=== PATIENT | female | born 1945 | race Caucasian/White ===

== ENCOUNTER → 2018-04-20 | Outpatient (CLI) | payer MEDICARE | END | disposition home or self-care (01) | LOC: NPLAB 12:27 | PROVIDERS: ATTEND Nurse Practitioner Family | DX: N39.0 Urinary tract infection, site not specified (principal) | CPT/HCPCS: 87077; 87086; 87186 ==

== ENCOUNTER → 2021-02-19 | Outpatient (CLI) | payer MEDICARE, OTHER ==
[~2021-02-19] MED LIST: LEXISCAN IV ONE
--- NOTE | 2021-02-19 11:51 | PCM.ECHO ---
APPROVED REPORT EXAM: Comprehensive 2D, Doppler, and color-flow Echocardiogram. Patient Location: OUT-PATIENT Indications Chest Pain 2D Dimensions LVOT Diameter 2.27 (1.8-2.4cm) LVEF(%) 64.14 (>50%) M-Mode Dimensions RVDd 0.50 (2.1-3.2cm) Left Atrium(MM) 4.65 (2.5-4.0cm) IVSd 0.50 (0.7-1.1cm) Aortic Root 3.00 (2.2-3.7cm) LVDd 6.30 (4.0-5.6cm) Aortic Cusp Exc 1.70 (1.5-2.0cm) PWd 0.55 (0.7-1.1cm) MV EPSS 0.84 (<0.5cm) IVSs 1.05 cm FS (%) 34.10 % LVDs 4.15 (2.0-3.8cm) ESV(Teich) 77.43 ml PWs 1.35 cm LVEF(%) 61.98 (>50%) Volumes Biplane 2D LV Volumes Biplane 2D LA Volumes LVEDv A4C 125.19 mL LA ESV Index LVESv A4C 44.90 mL Aortic Valve AoV Peak Jareth. 1.35 m/s AoV VTI 30.05 cm AO Peak GR. 7.60 mmHg AO Mean GR. 4.35 mmHg LVOT VTI 22.41 cm LVOT Peak Jareth. 0.87 m/s FRENCH(VTI)/BSA 3.01 cm2/m2 FRENCH (VTI) 3.01 cm2 Mitral Valve MV E Velocity 0.70m/s MR Peak Gr. 40.30mmHg MV A Velocity 1.05m/s TDI Lateral E' P. V 0.09m/s Medial E' P. V 0.05m/s Pulmonary Valve PV Peak Velocity 0.50m/s PV Peak Grad. 1.15mmHg RVOT VTI 12.97cm Tricuspid Valve TR P. Velocity 2.90m/s RAP ESTIMATE 10.00mmHg TR Peak Gr. 34.55mmHg RVSP 44.55mmHg LEFT VENTRICLE The left ventricle is normal size. The left ventricular systolic function is normal. The left ventricular ejection fraction is within the normal range. There is normal left ventricular wall thickness. There is normal LV segmental wall motion. There is no ventricular septal defect visualized. No left ventricle thrombus noted on this study. LVEF is 55-60%. RIGHT VENTRICLE The right ventricle is normal size. The right ventricular systolic function is normal. There is normal right ventricular wall thickness. ATRIA Left atrium is severely dilated. Right atrium is moderately dilated. The interatrial septum is intact with no evidence for an atrial septal defect. AORTIC VALVE The aortic valve is normal in structure. There is no aortic valvular stenosis. No aortic regurgitation is present. There is no aortic valvular vegetation. MITRAL VALVE The mitral valve is normal in structure. There is no mitral valve stenosis. Moderate to severe mitral regurgitation There is no evidence of mitral valve vegetations. TRICUSPID VALVE The tricuspid valve is normal in structure. There is no tricuspid valve stenosis. Moderate to severe tricuspid regurgitation Moderate pulmonary hypertension. There is no tricuspid valve vegetations. PULMONIC VALVE Pulmonic valve is not well visualized. There is no pulmonic valvular stenosis. There is no pulmonic valvular regurgitation. GREAT VESSELS The aortic root is normal in size. Pulmonary artery is not well visualized. Aortic arch is not well visualized. The IVC is normal in size and collapses >50% with inspiration. PERICARDIUM There is no pericardial effusion. There is no pleural effusion. Other Information Study Quality: Fair <Conclusion> The left ventricular systolic function is normal. LVEF is 55-60%. Left atrium is severely dilated. Right atrium is moderately dilated. Moderate to severe mitral regurgitation Moderate to severe tricuspid regurgitation Moderate pulmonary hypertension. Electronically signed by : BENEDICTO MA. 02/19/2021 11:51:29
--- NOTE | 2021-02-19 21:31 | STRESS ---
DATE OF SERVICE: 02/19/2021 DICTATOR NAME: BENEDICTO IVANAOtilio CARDIAC STRESS TEST INDICATION: Chest pain. FINDINGS: Baseline EKG shows normal sinus rhythm with left ventricular hypertrophy. Stress EKG shows normal sinus rhythm, unchanged from baseline. At the end of recovery, EKG shows normal sinus rhythm, unchanged from baseline. Baseline heart rate is 74 beats per minute and oanh to 95 beats per minute during stress. At the end of recovery, the heart rate was 99 beats per minute. Baseline blood pressure is 173/88 and remained the same during stress. At the end of recovery, the blood pressure was 167/85. Blood pressure and heart rate were appropriate for stress. There were no significant symptoms noted during stress. There were no arrhythmias noted during stress. EKG portion of stress test is negative for myocardial ischemia. Nuclear images were obtained with a rest dose of 10 mCi technetium 99 sestamibi, and a stress dose of 32.6 mCi technetium 99 sestamibi. Nuclear images reveal homogeneous tracer distribution across all wall segments in both rest and stress images, with no evidence of myocardial ischemia or infarction. Left ventricular ejection fraction is 83%. EDV is 44 mL, ESV 7 mL. The left ventricle is normal in size. Gated motion images showed normal wall motion across all segments of the left ventricle. TID is 1.63. There is no evidence of diaphragmatic attenuation artifact. IMPRESSION: 1. Normal myocardial perfusion imaging with no evidence of myocardial ischemia or infarction. 2. Left ventricular ejection fraction of 83%. 3. This is a negative study. Ysabel BROOKS D.O. DR: NIKKO/JOSE LUIS TID: [id number] RECEIPT: [id number]
== END | disposition home or self-care (01) ==
LOC: RAD 08:26
PROVIDERS: ATTEND Internal Medicine Interventional Cardiology
DX: I08.1 Rheumatic disorders of both mitral and tricuspid valves (principal); I87.2 Venous insufficiency (chronic) (peripheral)
CPT/HCPCS: 78452; 93017; 93306; A9500; J2785

== ENCOUNTER 2024-06-30 12:37 | Observation (INO) | payer MEDICARE ==
[~2024-06-30] VITALS: Ht 157.5 cm; Wt 77.1 kg
[2024-06-30] VITALS (7 sets, daily range): BP systolic 155–194; BP diastolic 81–100; PULSE 62–67; RESP 18; TEMP 97.2–98.5; O2SAT 90–95
[2024-06-30 13:40] LABS: LEUKOCYTE ESTERASE ,URINE 1+ (NEGATIVE); NITRATE,URINE POSITIVE (NEGATIVE); UROBILINOGEN,URINE 0.2 E.U./dL (0.2)
[2024-06-30 13:40] LABS: EOSINOPHIL # 0.1 10^3/uL (0.0-0.2); EOSINOPHIL % 1.7 % (0.0-5.0); HEMATOCRIT(ML) 43.8 % (36.0-46.0); HEMOGLOBIN 13.9 g/dL (12.0-15.0); LYMPHOCYTES # 2.83 10^3/uL1 (1.0-4.8); LYMPHOCYTES % 48.1 % (24.0-44.0); MEAN CORP HGB 28.9 pg (26-34); MEAN CORP HGB CONCENTRATION 31.7 g/dL (33-36.5); MEAN CORP VOLUME 91.1 fL (78-100); MONOCYTES # 0.5 10^3/uL (0.3-0.8); MONOCYTES % 8.7 % (5.0-12.0); NEUTROPHIL # 2.4 10^3/uL (1.8-7.7); NEUTROPHILS % 41.3 % (41.0-85.0); PLATELET COUNT 249 10^3/uL (150-400); RED BLOOD CELL 4.81 10^6/uL (4.00-5.20); RED CELL DISTRIBUTION WIDTH 13.5 % (11.5-14.5); WHITE BLOOD CELL 5.9 10^3/uL (4.5-11.0)
[2024-06-30] MEDS ORDERED: NS 1000ML 1,000 ML ONE (13:40)
[2024-06-30 13:42] LABS: +ADD MANUAL DIFF(NO CHRG) NO
[2024-06-30] MEDS: NS 1000ML 1,000 ML IV STA (13:44)
[2024-06-30 13:46] LABS: APPEARANCE,URINE CLOUDY; UA COLOR YELLOW
[2024-06-30 14:11] LABS: ALBUMIN(ML) 3.3 g/dL (3.4-5.0); ALBUMIN/GLOBULIN RATIO 0.891; ANION GAP 10.6; BUN/CREATININE RATIO 22.58 (10.0-20.0); CALCIUM 8.6 mg/dL (8.4-10.5); CREATININE SERUM 0.62 mg/dL (0.59-1.40); EST GFR, NON-AA 93.1 (>/=60); POTASSIUM 3.6 mmol/L (3.6-5.2)
[2024-06-30] MEDS: APRESOLINE IV STA (14:29)
[2024-06-30] MEDS ORDERED: ROCEPHIN ONE (15:38)
[2024-06-30] MEDS ORDERED: NS 100ML 100 ML IV ONE (15:38)
[2024-06-30] MEDS ORDERED: 1/2 1000ML/KCL 20MEQ 1,000 ML ONE (15:38)
[2024-06-30] MEDS: 1/2 1000ML/KCL 20MEQ 1,000 ML IV STA (15:43)
[2024-06-30] MEDS: ROCEPHIN 1,000 MG in NS 100ML 100 ML IV STA (15:44)
[2024-06-30] MEDS ORDERED: SIMETHICONE PO PRN (19:00)
[2024-06-30] MEDS ORDERED: DEXTROSE 50%-WATER SYRINGE IV PRN (19:00)
[2024-06-30] MEDS ORDERED: DUONEB 0.5-3(2.5) MG/3 ML IH PRN (19:00)
[2024-06-30] MEDS ORDERED: TYLENOL PO PRN (19:00)
[2024-06-30] MEDS ORDERED: ZOFRAN IV PRN (19:00)
[2024-06-30] MEDS ORDERED: NICOTINE 21 MGPATCH TD PRN (19:00)
[2024-06-30] MEDS ORDERED: NITROSTAT SL PRN (19:00)
[2024-06-30] MEDS: LOVENOX SQ SCH (19:33)
[2024-06-30] MEDS: APRESOLINE IV PRN (20:11)
[2024-06-30] MEDS: NORVASC PO STA (22:02)
[2024-07-01 00:52] VITALS: BP 159/84; PULSE 61; RESP 16; TEMP 98.1; O2SAT 92
[2024-07-01 01:39] VITALS: RESP 16; O2SAT 92
[2024-07-01 04:46] VITALS: BP 155/82; PULSE 65; RESP 18; TEMP 98; O2SAT 90
[2024-07-01 05:36] LABS: BASOPHIL % 0.2 % (0.1-1.2); EOSINOPHIL # 0.3 10^3/uL (0.0-0.2); EOSINOPHIL % 4.3 % (0.0-5.0); HEMATOCRIT(ML) 44.5 % (36.0-46.0); HEMOGLOBIN 14.4 g/dL (12.0-15.0); LYMPHOCYTES # 2.67 10^3/uL1 (1.0-4.8); LYMPHOCYTES % 43.9 % (24.0-44.0); MEAN CORP HGB 28.8 pg (26-34); MEAN CORP HGB CONCENTRATION 32.4 g/dL (33-36.5); MONOCYTES # 0.6 10^3/uL (0.3-0.8); NEUTROPHIL # 2.6 10^3/uL (1.8-7.7); NEUTROPHILS % 42.6 % (41.0-85.0); PLATELET COUNT 221 10^3/uL (150-400); RED CELL DISTRIBUTION WIDTH 13.5 % (11.5-14.5); WHITE BLOOD CELL 6.1 10^3/uL (4.5-11.0)
[2024-07-01 05:49] LABS: +ADD MANUAL DIFF(NO CHRG) NO
[2024-07-01 05:54] LABS: ANION GAP 10.5; BUN/CREATININE RATIO 17.24 (10.0-20.0); CALCIUM 8.5 mg/dL (8.4-10.5); CARBON DIOXIDE 30.7 mmol/L (20.0-32); CREATININE SERUM 0.58 mg/dL (0.59-1.40); EST GFR, NON-AA 100.5 (>/=60); POTASSIUM 3.2 mmol/L (3.6-5.2)
[2024-07-01] MEDS ORDERED: 1/2 1000ML/KCL 20MEQ 1,000 ML ONE (05:59)
[2024-07-01] MEDS: 1/2 1000ML/KCL 20MEQ 1,000 ML IV ONE (06:02)
[2024-07-01 06:56] VITALS: BP 136/79; PULSE 56; RESP 18; TEMP 97.7; O2SAT 94
[2024-07-01] MEDS: PROTONIX IV IV SCH (09:06)
[2024-07-01 12:59] VITALS: BP 147/84; PULSE 65; RESP 18; TEMP 97.7; O2SAT 96
[2024-07-01] MEDS ORDERED: AMOX1TAB61 PO (12:59)
[2024-07-01] MEDS ORDERED: ROCEPHIN 1,000 MG in NS 100ML 100 ML IV SCH (14:00)
[2024-07-01 14:06] VITALS: BP 147/84; PULSE 65; RESP 18; TEMP 97.7; O2SAT 96
== END 2024-07-01 14:06 | disposition home or self-care (01) ==
LOC: ER 12:37 → MS 15:26 → INTOOBSV 15:26 → OBS 15:27
PROVIDERS: ADMIT Student in an Organized Health Care Education/Training Program; ATTEND Hospitalist
DX: N39.0 Urinary tract infection, site not specified (principal); R03.0 Elevated blood-pressure reading, without diagnosis of hypertension; K52.9 Noninfective gastroenteritis and colitis, unspecified; E86.0 Dehydration; Z88.5 Allergy status to narcotic agent; Z90.710 Acquired absence of both cervix and uterus; Z88.2 Allergy status to sulfonamides; Z79.899 Other long term (current) drug therapy
CPT/HCPCS: 96372; 96374; 96361 ×2; 96375 ×2; 99285; 87086; 74177; 80053; 85025 ×2; 36415 ×2; 81001; 83690; 87186; 93005; 80048; 84443; 83735; G0378 ×3; J3480 ×2; J7030; J0360; J1650; J0696 ×2; Q9965; C9113